=== PATIENT | male | born 1995 | race American Indian/Alaskan Native ===

== ENCOUNTER 2017-11-03 12:05 | Emergency (ER) | payer OTHER ==
[2017-11-03 12:27] VITALS: BP 94/69
[2017-11-03] MEDS ORDERED: TORADOL IM ONE (14:49)
--- NOTE | 2017-11-03 14:52 | Emergency Department Report ---
Chief Complaint: Extremity Injury, Upper Stated Complaint: WRIST/THUMB/ANKLE PAIN Time Seen by Provider: 11/03/17 14:45 - HPI History of Present Illness: 22-year-old male presents to the emergency department with a four-day history of right thumb pain, right wrist pain and right foot pain. 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 His thumb got bent back and since that time he's been having the thumb and wrist pain. Also a large heavy rack rolled over his right foot. He has not taken anything for symptoms. Presentation. He does not have a past medical history. - ROS Review of Systems: Positive for arthralgia. Negative for edema, skin color change, or any obvious deformity - Exam Vital Signs: Vital Signs 11/03/17 12:26 Temperature 98.8 F Pulse Rate 79 Respiratory 18 Rate Blood Pressure 94/69 O2 Sat by Pulse 98 Oximetry Physical Exam: He has some tenderness to palpation to the proximal base of the right thumb, the circumferential right breast, and the right midfoot. Radial pulse +2 over 4 bilaterally. Dorsalis pedis pulse posterior before to the affected right foot. MSE screening note: Focused history and physical exam performed. Due to findings the following was ordered: I have ordered an x-ray of the right hand, right wrist, and right foot. He has been given a IM dose of Toradol for his discomfort. ED Disposition for MSE Condition: Stable Referrals: PRIMARY CARE, [Primary Care Provider] - 3-5 Days
--- NOTE | 2017-11-03 15:28 | XRay Report ---
XRAY RIGHT FOOT THREE VIEWS: 11/03/17 12:05:00 CLINICAL: Right foot pain. FINDINGS: Normal bones, joints and soft tissues. No fracture or dislocation. IMPRESSION: Normal.
--- NOTE | 2017-11-03 15:29 | XRay Report ---
XRAY RIGHT HAND THREE VIEWS: 11/03/17 12:05:00 CLINICAL: Thumb pain. FINDINGS: Slight motion on the exam. Normal bones, joints and soft tissues. No fracture or dislocation. IMPRESSION: Normal.
--- NOTE | 2017-11-03 15:30 | XRay Report ---
RIGHT WRIST FOUR VIEWS: 11/03/17 14:48:00 CLINICAL: Pain. FINDINGS: Slight motion on the examination. Normal bones, joints and soft tissues. No fracture or dislocation. IMPRESSION: Normal
--- NOTE | 2017-11-03 16:49 | Emergency Department Report ---
HPI - General Chief Complaint: Extremity Injury, Upper Time Seen by Provider: 11/03/17 14:45 - HPI HPI: 22-year-old male presents to the emergency department with a four-day history of right thumb pain, right wrist pain and right foot pain. 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 His thumb got bent back while moving some of the tires and since that time he's been having the thumb and wrist pain. Also a large heavy rack rolled over his right foot. He has not taken anything for symptoms prior to presentation. He is able to bear some weight but has pain with doing so. He does not have a past medical history. ED Past Medical Hx - Past Medical History Previous Medical History?: No - Surgical History Past Surgical History?: No - Medications Home Medications: Home Medications Medication Instructions Recorded Confirmed Last Taken Type HYDROcodone/ACETAMINOPHEN [[place] 1 each PO Q8H PRN #10 tablet 11/03/17 Unknown Rx 5-325 Tablet] Ibuprofen 800 mg PO Q8H PRN #20 tablet 11/03/17 Unknown Rx ED Review of Systems ROS: Stated complaint: WRIST/THUMB/ANKLE PAIN Other details as noted in HPI Comment: All other systems reviewed and negative Constitutional: denies: chills, fever Eyes: denies: eye pain, eye discharge, vision change ENT: denies: ear pain, throat pain Respiratory: denies: cough, shortness of breath, wheezing Cardiovascular: denies: chest pain, palpitations Gastrointestinal: denies: abdominal pain, nausea, diarrhea Genitourinary: denies: urgency, dysuria Musculoskeletal: arthralgia. denies: back pain Skin: denies: rash, lesions Neurological: denies: headache, weakness, paresthesias Physical Exam - Physical Exam Vital Signs: Vital Signs 11/03/17 12:26 Temperature 98.8 F Pulse Rate 79 Respiratory 18 Rate Blood Pressure 94/69 O2 Sat by Pulse 98 Oximetry Physical Exam: GENERAL: The patient is well-developed well-nourished. HENT: Normocephalic. Atraumatic. Patient has moist mucous membranes. EYES: Extraocular motions are intact. Pupils equal reactive to light bilaterally. NECK: Supple. Trachea is midline. CHEST/LUNGS: Clear to auscultation. There is no respiratory distress noted. HEART/CARDIOVASCULAR: Regular. There is no tachycardia. There is no murmur. ABDOMEN: Abdomen is soft, nontender. Patient has normal bowel sounds. There is no abdominal distention. SKIN: Skin is warm and dry. NEURO: The patient is awake, alert, and oriented. The patient is cooperative. The patient has no focal neurologic deficits. The patient has normal speech and gait. MUSCULOSKELETAL: Tenderness to palpation to the proximal right thumb and circumferential right wrist. Cap refill less than 2 seconds. Radial pulse +2 over 4 to the affected right upper extremity. Tenderness palpation to the right midfoot but no obvious deformity. +2 over 4 dorsalis pedis pulse to the affected right foot. Decreased range of motion of the right thumb, right wrist and foot secondary to pain. ED Course Vital Signs 11/03/17 12:26 Temperature 98.8 F Pulse Rate 79 Respiratory 18 Rate Blood Pressure 94/69 O2 Sat by Pulse 98 Oximetry ED Medical Decision Making - Radiology Data Radiology results: image reviewed interpreted by me: X-ray of the right hand, right wrist and right foot do not show any fractures, dislocations or any acute process. - Medical Decision Making Patient presents with pain to the right thumb and wrist as well as the right mid foot. X-rays were done of these regions that do not show any fracture, dislocation or any acute process. The patient understands that there still could be some underlying ligament or tendinous injury. He was placed in a right thumb spica, a right foot Maximo wrap and placed on crutches. He was given a referral for an orthopedist and given pain medication. He will return to the ER with any worsening of symptoms or any acute distress. - Differential Diagnosis fracture, dislocation, contusion, sprain, strain Critical Care Time: No Critical care attestation.: If time is entered above; I have spent that time in minutes in the direct care of this critically ill patient, excluding procedure time. ED Disposition Clinical Impression: Right wrist pain, Right foot pain Sprain of right thumb Qualifiers: Encounter type: initial encounter Sprain of finger site: unspecified site Qualified Code(s): S63.601A - Unspecified sprain of right thumb, initial encounter Disposition: - TO HOME OR SELFCARE Is pt being admited?: No Condition: Stable Instructions: Finger Sprain (ED), Arthralgia (ED) Additional Instructions: Please follow up with an orthopedist. Return to the emergency Department with any worsening of your symptoms or any acute distress. You have been prescribed a medication that is sedating and therefore should not be taken prior to driving , working, and responsible for children and in no way should be mixed with alcohol of any quantity. Prescriptions: HYDROcodone/ACETAMINOPHEN [[place] 5-325 Tablet] 1 each PO Q8H PRN #10 tablet PRN Reason: Pain Ibuprofen 800 mg PO Q8H PRN #20 tablet PRN Reason: Pain Referrals: COOKIE LUNA MD [Staff Physician] - 3-5 Days [facility] [Provider Group] - 3-5 Days Forms: Work/School Release Form(ED) Time of Disposition: 16:52
== END 2017-11-03 17:10 | disposition home or self-care (01) ==
LOC: ED 12:05
DX: S63.601A Unspecified sprain of right thumb, initial encounter (principal); X50.0XXA Overexertion from strenuous movement or load, initial encounter; Y93.89 Activity, other specified; Y92.89 Other specified places as the place of occurrence of the external cause; Y99.8 Other external cause status
CPT/HCPCS: 29125; 73110; 73130; 73630; 96372; 99284; J1885

== ENCOUNTER 2018-02-11 16:13 | Emergency (ER) | payer OTHER ==
[2018-02-11 16:37] VITALS: BP 122/72
== END 2018-02-11 20:50 | disposition left against medical advice (07) ==
LOC: ED 16:13
DX: R07.89 Other chest pain (principal); F17.200 Nicotine dependence, unspecified, uncomplicated; Z53.21 Procedure and treatment not carried out due to patient leaving prior to being seen by health care provider
CPT/HCPCS: 93005; 93010

== ENCOUNTER 2018-04-23 18:29 | Emergency (ER) | payer SELFPAY ==
[2018-04-23] MEDS ORDERED: MOTRIN PO ONE (19:01)
--- NOTE | 2018-04-23 21:33 | Emergency Department Report ---
- General Chief Complaint: Upper Respiratory Infection Stated Complaint: FLU LIKE SYMPTOMS Time Seen by Provider: 04/23/18 21:18 Source: patient Mode of arrival: Ambulatory Limitations: No Limitations - History of Present Illness Initial Comments: 23-year-old after an [place] male with no past medical history presents to the emergency room for cough with blood-tinged mucus, body aches, headache upset stomach chest pain with cough and runny nose and nasal congestion. Patient reports this is been going on for the last 3 days. Patient does admit to taking Tylenol which she reports has not helped. 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 Patient has no known drug allergies currently takes no medications on a daily basis. MD Complaint: fever, cough, sore throat, rhinorrhea, nasal congestion -: days(s) (3) Severity: moderate Quality: aching Consistency: intermittent Improves With: nothing Worsens With: other (cough) Associated Symptoms: fever, myalgias, headache, rhinorrhea, nasal congestion, sore throat, cough, chest pain. denies: nausea, vomiting, diarrhea Treatments Prior to Arrival: Acetaminophen - Related Data Previous Rx's Medication Instructions Recorded Last Taken Type HYDROcodone/ACETAMINOPHEN [[place] 1 each PO Q8H PRN #10 tablet 11/03/17 Unknown Rx 5-325 Tablet] Ibuprofen 800 mg PO Q8H PRN #20 tablet 11/03/17 Unknown Rx Fluticasone [Flonase] 1 spray NS QDAY #1 bottle 04/23/18 Unknown Rx Loratadine [Claritin] 10 mg PO DAILY #15 tablet 04/23/18 Unknown Rx guaiFENesin [Robitussin] 200 mg PO Q4HR #118 ml 04/23/18 Unknown Rx Allergies Allergy/AdvReac Type Severity Reaction Status Date / Time No Known Allergies Allergy Unverified 11/03/17 12:25 ED Review of Systems ROS: Stated complaint: FLU LIKE SYMPTOMS Other details as noted in HPI Comment: All other systems reviewed and negative ED Past Medical Hx - Past Medical History Previous Medical History?: No - Surgical History Past Surgical History?: No - Social History Smoking Status: Never Smoker Substance Use Type: None - Medications Home Medications: Home Medications Medication Instructions Recorded Confirmed Last Taken Type HYDROcodone/ACETAMINOPHEN [[place] 1 each PO Q8H PRN #10 tablet 11/03/17 Unknown Rx 5-325 Tablet] Ibuprofen 800 mg PO Q8H PRN #20 tablet 11/03/17 Unknown Rx Fluticasone [Flonase] 1 spray NS QDAY #1 bottle 04/23/18 Unknown Rx Loratadine [Claritin] 10 mg PO DAILY #15 tablet 04/23/18 Unknown Rx guaiFENesin [Robitussin] 200 mg PO Q4HR #118 ml 04/23/18 Unknown Rx ED Physical Exam - General Limitations: No Limitations General appearance: alert, in no apparent distress - Head Head exam: Present: atraumatic, normocephalic - Eye Eye exam: Present: EOMI - ENT ENT exam: Present: TM's normal bilaterally - Expanded ENT Exam Expanded Throat exam: Positive: tonsillar erythema, tonsillomegaly. Negative: tonsillar exudate - Neck Neck exam: Present: normal inspection - Respiratory Respiratory exam: Present: normal lung sounds bilaterally. Absent: respiratory distress - Cardiovascular Cardiovascular Exam: Present: regular rate, normal rhythm. Absent: systolic murmur, diastolic murmur, rubs, gallop - GI/Abdominal GI/Abdominal exam: Present: soft, normal bowel sounds - Extremities Exam Extremities exam: Present: normal inspection, full ROM - Back Exam Back exam: Present: full ROM - Neurological Exam Neurological exam: Present: alert, oriented X3 - Psychiatric Psychiatric exam: Present: normal affect, normal mood - Skin Skin exam: Present: warm, dry, intact, normal color. Absent: rash ED Course Vital Signs 04/23/18 04/23/18 04/23/18 18:52 19:15 21:54 Temperature 102.1 F H 99.1 F Pulse Rate 79 86 Respiratory 20 18 20 Rate Blood Pressure 142/58 Blood Pressure 106/72 [Right] O2 Sat by Pulse 100 95 Oximetry ED Medical Decision Making - Medical Decision Making Patient has been evaluated by this provider in fast track. Ibuprofen 800 mg given in triage for pain management and fever control. Rapid strep rapid flu and chest x-ray has been ordered. Critical care attestation.: If time is entered above; I have spent that time in minutes in the direct care of this critically ill patient, excluding procedure time. ED Disposition Clinical Impression: Viral syndrome Disposition: DC-01 TO HOME OR SELFCARE Is pt being admited?: No Does the pt Need Aspirin: No Condition: Stable Instructions: Viral Syndrome (ED) Additional Instructions: Please take pain medication as needed. Follow-up with your primary care provider or [facility]. Prescriptions: Fluticasone [Flonase] 1 spray NS QDAY #1 bottle guaiFENesin [Robitussin] 200 mg PO Q4HR #118 ml Loratadine [Claritin] 10 mg PO DAILY #15 tablet Referrals: PRIMARY CARE, [Primary Care Provider] - 3-5 Days [facility] [Provider Group] - 3-5 Days Forms: Work/School Release Form(ED)
[2018-04-23 21:55] VITALS: BP 106/72
--- NOTE | 2018-04-23 22:18 | XRay Report ---
FINAL REPORT PROCEDURE: XR CHEST ROUTINE 2V TECHNIQUE: PA and lateral chest radiographs were obtained. CPT 97696 HISTORY: cough with fever blood-tinged mucus COMPARISON: No prior studies are available for comparison. FINDINGS: Heart: Normal. Mediastinum/Vessels: Normal. Lungs/Pleural space: Normal. Bony thorax: No acute osseous abnormality. Other: IMPRESSION: Normal examination.
== END 2018-04-23 22:50 | disposition home or self-care (01) ==
LOC: ED 18:29
DX: B34.9 Viral infection, unspecified (principal)
CPT/HCPCS: 71046; 87116; 87400; 87430

== ENCOUNTER 2018-10-27 03:08 | Emergency (ER) | payer OTHER ==
[2018-10-27 03:21] VITALS: BP 135/76
--- NOTE | 2018-10-27 04:13 | XRay Report ---
PROCEDURE: XR CLAVICLE LT TECHNIQUE: 2 views of the left clavicle were obtained. HISTORY: pain a and deformity COMPARISONS: None FINDINGS: There is no evidence of acute fracture. The AC joint and glenohumeral joint appear intact. The soft t issues otherwise are unremarkable. IMPRESSION: Within normal limits.. This document is electronically signed by Jalil Terrell MD., October 27 2018 04:11:15 AM ET
[2018-10-27] MEDS ORDERED: IBUPROFEN PO ONE (04:46)
--- NOTE | 2018-10-27 04:49 | Emergency Department Report ---
ED Male HPI - General Chief complaint: Extremity Injury, Upper Stated complaint: COLLAR BONE OUT OF PLACE,RT HAND IN PAIN Time Seen by Provider: 10/27/18 04:45 Source: patient Mode of arrival: Ambulatory Limitations: No Limitations - History of Present Illness Initial comments: Patient is a 14-year-old male who - Related Data Previous Rx's Medication Instructions Recorded Last Taken Type HYDROcodone/ACETAMINOPHEN [[place] 1 each PO Q8H PRN #10 tablet 11/03/17 Unknown Rx 5-325 Tablet] Ibuprofen 800 mg PO Q8H PRN #20 tablet 11/03/17 Unknown Rx Fluticasone [Flonase] 1 spray NS QDAY #1 bottle 04/23/18 Unknown Rx Loratadine [Claritin] 10 mg PO DAILY #15 tablet 04/23/18 Unknown Rx guaiFENesin [Robitussin] 200 mg PO Q4HR #118 ml 04/23/18 Unknown Rx Allergies Allergy/AdvReac Type Severity Reaction Status Date / Time No Known Allergies Allergy Unverified 11/03/17 12:25 ED Review of Systems ROS: Stated complaint: COLLAR BONE OUT OF PLACE,RT HAND IN PAIN Other details as noted in HPI ED Past Medical Hx - Past Medical History Previous Medical History?: Yes Additional medical history: sleep apnea - Surgical History Past Surgical History?: No - Social History Smoking Status: Current Every Day Smoker Substance Use Type: Alcohol - Medications Home Medications: Home Medications Medication Instructions Recorded Confirmed Last Taken Type HYDROcodone/ACETAMINOPHEN [[place] 1 each PO Q8H PRN #10 tablet 11/03/17 Unknown Rx 5-325 Tablet] Ibuprofen 800 mg PO Q8H PRN #20 tablet 11/03/17 Unknown Rx Fluticasone [Flonase] 1 spray NS QDAY #1 bottle 04/23/18 Unknown Rx Loratadine [Claritin] 10 mg PO DAILY #15 tablet 04/23/18 Unknown Rx guaiFENesin [Robitussin] 200 mg PO Q4HR #118 ml 04/23/18 Unknown Rx ED Physical Exam - General Limitations: No Limitations ED Course Vital Signs 10/27/18 03:17 Temperature 98.1 F Pulse Rate 98 H Respiratory 16 Rate Blood Pressure 135/76 O2 Sat by Pulse 99 Oximetry Critical care attestation.: If time is entered above; I have spent that time in minutes in the direct care of this critically ill patient, excluding procedure time. ED Disposition Condition: Stable Referrals: SATYA ROSA MD [Primary Care Provider] - 3-5 Days
--- NOTE | 2018-10-27 07:16 | Emergency Department Report ---
ED General Adult HPI - General Chief complaint: Extremity Injury, Upper Stated complaint: COLLAR BONE OUT OF PLACE,RT HAND IN PAIN Time Seen by Provider: 10/27/18 04:45 Source: patient Mode of arrival: Ambulatory Limitations: No Limitations - History of Present Illness Initial comments: pt is a 23 y/o aam who presents for left shouler pain x 2 weeks after lifting heavy box over head, now with pain swelling spasm , there is no sob no wheezing no cough no hemoptysis no deformity Onset/Timin -: week(s) Location: upper extremity Severity scale (0 -10): 4 Quality: sharp Consistency: intermittent Improves with: none Worsens with: movement Treatments Prior to Arrival: none - Related Data Previous Rx's Medication Instructions Recorded Last Taken Type HYDROcodone/ACETAMINOPHEN [[place] 1 each PO Q8H PRN #10 tablet 11/03/17 Unknown Rx 5-325 Tablet] Ibuprofen 800 mg PO Q8H PRN #20 tablet 11/03/17 Unknown Rx Fluticasone [Flonase] 1 spray NS QDAY #1 bottle 04/23/18 Unknown Rx Loratadine [Claritin] 10 mg PO DAILY #15 tablet 04/23/18 Unknown Rx guaiFENesin [Robitussin] 200 mg PO Q4HR #118 ml 04/23/18 Unknown Rx Cyclobenzaprine [Flexeril] 10 mg PO TID PRN #30 tablet 10/27/18 Unknown Rx Menthol/Camphor [[place] 1 applicatio TP QID #1 tube 10/27/18 Unknown Rx Ointment] Naproxen [Naprosyn] 500 mg PO BID PRN #30 tablet 10/27/18 Unknown Rx Allergies Allergy/AdvReac Type Severity Reaction Status Date / Time No Known Allergies Allergy Unverified 11/03/17 12:25 ED Review of Systems ROS: Stated complaint: COLLAR BONE OUT OF PLACE,RT HAND IN PAIN Other details as noted in HPI Constitutional: denies: chills, fever Eyes: denies: eye pain, eye discharge, vision change ENT: denies: ear pain, throat pain Respiratory: denies: cough, shortness of breath, wheezing Cardiovascular: denies: chest pain, palpitations Endocrine: no symptoms reported Gastrointestinal: denies: abdominal pain, nausea, diarrhea Genitourinary: denies: urgency, dysuria Musculoskeletal: other (left shoulder pain ). denies: back pain, joint swelling, arthralgia Skin: denies: rash, lesions Neurological: denies: headache, weakness, paresthesias Psychiatric: denies: anxiety, depression Hematological/Lymphatic: as per HPI ED Past Medical Hx - Past Medical History Previous Medical History?: Yes Additional medical history: sleep apnea - Surgical History Past Surgical History?: No - Social History Smoking Status: Current Every Day Smoker Substance Use Type: Alcohol - Medications Home Medications: Home Medications Medication Instructions Recorded Confirmed Last Taken Type HYDROcodone/ACETAMINOPHEN [[place] 1 each PO Q8H PRN #10 tablet 11/03/17 Unknown Rx 5-325 Tablet] Ibuprofen 800 mg PO Q8H PRN #20 tablet 11/03/17 Unknown Rx Fluticasone [Flonase] 1 spray NS QDAY #1 bottle 04/23/18 Unknown Rx Loratadine [Claritin] 10 mg PO DAILY #15 tablet 04/23/18 Unknown Rx guaiFENesin [Robitussin] 200 mg PO Q4HR #118 ml 04/23/18 Unknown Rx Cyclobenzaprine [Flexeril] 10 mg PO TID PRN #30 tablet 10/27/18 Unknown Rx Menthol/Camphor [[place] 1 applicatio TP QID #1 tube 10/27/18 Unknown Rx Ointment] Naproxen [Naprosyn] 500 mg PO BID PRN #30 tablet 10/27/18 Unknown Rx ED Physical Exam - General Limitations: No Limitations General appearance: alert, in no apparent distress - Head Head exam: Present: atraumatic, normocephalic - Eye Eye exam: Present: normal appearance, PERRL, EOMI Pupils: Present: normal accommodation - ENT ENT exam: Present: mucous membranes moist - Neck Neck exam: Present: normal inspection, full ROM, lymphadenopathy - Respiratory Respiratory exam: Present: normal lung sounds bilaterally. Absent: respiratory distress, wheezes, stridor, chest wall tenderness, decreased breath sounds, prolonged expiratory - Cardiovascular Cardiovascular Exam: Present: regular rate, normal rhythm, normal heart sounds. Absent: systolic murmur, diastolic murmur, rubs, gallop - GI/Abdominal GI/Abdominal exam: Present: soft, normal bowel sounds. Absent: tenderness, rebound, bruit, hernia - Rectal Rectal exam: Present: deferred - Extremities Exam Extremities exam: Present: normal inspection, full ROM, normal capillary refill - Expanded Upper Extremity Exam Left Shoulder Exam: Present: tenderness (left lateral shoulder and clavicle ), abrasion, ecchymosis. Absent: swelling, laceration, deformity, crepidus, dislocation, erythema, tenderness over AC joint Upper Arm exam: Present: normal inspection, full ROM. Absent: tenderness Elbow exam: Present: normal inspection, full ROM. Absent: tenderness Forearm Wrist exam: Present: normal inspection, full ROM. Absent: tenderness, swelling Hand Wrist exam: Present: normal inspection, full ROM. Absent: tenderness, swelling Neuro motor exam: Present: wrist extension intact, thumb opposition intact, thumb IP flexion intact, thumb adduction intact, fingers 2-5 abduction intact Neurosensory exam: Present: 2-point discrimination, radial nerve intact, ulnar nerve intact, median nerve intact Vascular: Present: normal capillary refill, radial pulse, brachial pulse, ulnar pulse. Absent: pulse deficit radial art, pulse deficit ulnar art, pulse deficit brachial art - Back Exam Back exam: Present: normal inspection, full ROM. Absent: tenderness, CVA tenderness (R), CVA tenderness (L), muscle spasm, rash noted - Neurological Exam Neurological exam: Present: alert, oriented X3, CN II-XII intact, normal gait, reflexes normal. Absent: motor sensory deficit - Psychiatric Psychiatric exam: Present: normal affect, normal mood - Skin Skin exam: Present: warm, dry, intact, normal color. Absent: rash ED Course Vital Signs 10/27/18 10/27/18 03:17 04:54 Temperature 98.1 F Pulse Rate 98 H Respiratory 16 18 Rate Blood Pressure 135/76 O2 Sat by Pulse 99 Oximetry ED Medical Decision Making - Radiology Data Radiology results: report reviewed, image reviewed Findings [facility] [address] [place] [address] XRay Report Signed Patient: ZEHRA MELENDEZ II MR#: [id number] : 1995 Acct:[id number] Age/Sex: 23 / M ADM Date: 10/27/18 Loc: ED Attending Dr: Ordering Physician: CHRISTIAN KONG MD Date of Service: 10/27/18 Procedure(s): XR clavicle LT Accession Number(s): [id number] cc: ED MD DILAN Fluoro Time In Minutes: PROCEDURE: XR CLAVICLE LT TECHNIQUE: 2 views of the left clavicle were obtained. HISTORY: pain a and deformity COMPARISONS: None FINDINGS: There is no evidence of acute fracture. The AC joint and glenohumeral joint appear intact. The soft tissues otherwise are unremarkable. IMPRESSION: Within normal limits.. This document is electronically signed by Cookie Terrell MD., October 27 2018 04:11:15 AM ET Transcribed By: RB Dictated By: COOKIE TERRELL MD Electronically Authenticated By: COOKIE TERRELL MD Signed Date/Time: 10/27/18412 DD/ 6 TD/TT: 10/27/18406 - Medical Decision Making shoulder xray neg for fracture, no soft tissue abnormality , exam no deformity strength 5/5 rom intact unrestricted, electrician telephone equal , lungs are clear throughout , plan: nsaids muscle relaxant, analgesic balm follow up with pcp in 2-3 days return to ed if symptoms worsen, Critical care attestation.: If time is entered above; I have spent that time in minutes in the direct care of this critically ill patient, excluding procedure time. ED Disposition Clinical Impression: Left shoulder strain Qualifiers: Encounter type: initial encounter Qualified Code(s): S46.912A - Strain of unspecified muscle, fascia and tendon at shoulder and upper arm level, left arm, initial encounter Disposition: TO HOME OR SELFCARE Is pt being admited?: No Does the pt Need Aspirin: No Condition: Stable Instructions: Shoulder Sprain (ED) Prescriptions: Cyclobenzaprine [Flexeril] 10 mg PO TID PRN #30 tablet PRN Reason: Muscle Spasm Naproxen [Naprosyn] 500 mg PO BID PRN #30 tablet PRN Reason: pain Menthol/Camphor [[place] Ointment] 1 applicatio TP QID #1 tube Referrals: SATYA ROSA MD [Primary Care Provider] - 3-5 Days Forms: Work/School Release Form(ED) Time of Disposition: 07:28
== END 2018-10-27 05:47 | disposition home or self-care (01) ==
LOC: ED 03:08
DX: S46.912A Strain of unspecified muscle, fascia and tendon at shoulder and upper arm level, left arm, initial encounter (principal); F17.200 Nicotine dependence, unspecified, uncomplicated; X58.XXXA Exposure to other specified factors, initial encounter; Y93.89 Activity, other specified; Y92.89 Other specified places as the place of occurrence of the external cause; Y99.8 Other external cause status
CPT/HCPCS: 99283

== ENCOUNTER 2021-10-05 05:32 | Emergency (ER) | payer SELFPAY ==
[2021-10-05] MEDS ORDERED: ACETAMINOPHEN 500 MG TAB PO ONE (07:49)
--- NOTE | 2021-10-05 08:30 | XRay Report ---
XR chest routine 2V INDICATION / CLINICAL INFORMATION: sob. COMPARISON: 04/23/2018 FINDINGS: SUPPORT DEVICES: None. HEART /PULMONARY VASCULATURE: No significant abnormality. LUNGS / PLEURA: No significant pulmonary or pleural abnormality. No pneumothorax. ADDITIONAL FINDINGS: No significant additional findings. IMPRESSION: 1. No acute findings. Signer Name: Braydon Landin MD Signed: 10/05/2021 8:26 AM Workstation Name: [id number]
--- NOTE | 2021-10-05 09:03 | Emergency Department Report ---
Minor Respiratory - HPI Chief Complaint: Headache Stated Complaint: FLU SX Time Seen by Provider: 10/05/21 07:39 Duration: 3 Days Pain Location: Chest Severity: moderate Minor Respiratory: Yes Sore Throat, Yes Able to Tolerate Fluids, Yes Cough, Yes Fever, No Rhinorrhea, No Ear Pain, No Sick Contacts, No Hemoptysis, No Chest Pain, No Shortness of Breath Other History: 26 yo male comes to ER with cough and fever. ED Review of Systems ROS: Stated complaint: FLU SX Other details as noted in HPI Comment: All other systems reviewed and negative ED Past Medical Hx - Past Medical History Previous Medical History?: Yes Additional medical history: sleep apnea - Surgical History Past Surgical History?: No - Family History Family history: no significant - Social History Smoking Status: Current Every Day Smoker Substance Use Type: None - Medications Home Medications: Home Medications Medication Instructions Recorded Confirmed Last Taken Type HYDROcodone/ACETAMINOPHEN [[place] 1 each PO Q8H PRN #10 tablet 11/03/17 Unknown Rx 5-325 Tablet] Ibuprofen [Ibuprofen 800] 800 mg PO Q8H PRN #20 tablet 11/03/17 Unknown Rx Fluticasone [Flonase] 1 spray NS QDAY #1 bottle 04/23/18 Unknown Rx Loratadine (Nf) [Claritin] 10 mg PO DAILY #15 tablet 04/23/18 Unknown Rx guaiFENesin [Robitussin] 200 mg PO Q4HR #118 ml 04/23/18 Unknown Rx Cyclobenzaprine [Flexeril] 10 mg PO TID PRN #30 tablet 10/27/18 Unknown Rx Menthol/Camphor [[place] 1 applicatio TP QID #1 tube 10/27/18 Unknown Rx Ointment] Naproxen [Naprosyn] 500 mg PO BID PRN #30 tablet 10/27/18 Unknown Rx Azithromycin [Zithromax Z-TAWANNA] 250 mg PO DAILY #6 tablet 10/05/21 Unknown Rx Cetirizine HCl [ZyrTEC] 10 mg PO DAILY #30 capsule 10/05/21 Unknown Rx Fluticasone [Flonase] 1 spray NS QDAY #1 bottle 10/05/21 Unknown Rx methylPREDNISolone [Medrol 4MG 4 mg PO FS #1 tab.ds.pk 10/05/21 Unknown Rx DOSEPAK (21 tabs)] predniSONE [Deltasone] 20 mg PO DAILY #5 tablet 10/05/21 Unknown Rx Minor Respiratory Exam - Exam General: Vital signs noted. No distress. Alert and acting appropriately. HEENT: Yes Pharyngeal Erythema, Yes Moist Mucous Membranes, Yes Rhinorrhea, Yes Frontal Tenderness, Yes Maxillary Tenderness, No Pharyngeal Exudates, No Conjuctival Injection Ear: Neither TM Bulge, Neither TM Erythema, Neither EAC Pain, Neither EAC Discharge Neck: Yes Supple, No Adenopathy Lungs: Yes Good Air Exchange, No Wheezes, No [place], No Stridor, No Cough, No Labored Respirations, No Retractions, No Use of Accessory Muscles, No Other Abnormal Lung Sounds Heart: Yes Regular, No Murmur Abdomen: Yes Normal Bowel Sounds, No Tenderness, No Peritoneal Signs Skin: No Rash, No Edema Neurologic: Alert and oriented, no deficits. Musculoskeletal: Unremarkable. ED Course Vital Signs 10/05/21 06:00 Temperature 100.1 F H Pulse Rate 118 H Respiratory 22 Rate Blood Pressure 121/70 O2 Sat by Pulse 96 Oximetry ED Medical Decision Making - Radiology Data Radiology results: report reviewed, image reviewed - Medical Decision Making Vital Signs 10/05/21 10/05/21 06:00 09:43 Temperature 100.1 F H 98.8 F Pulse Rate 118 H 101 H Respiratory 22 18 Rate Blood Pressure 121/70 135/71 O2 Sat by Pulse 96 95 Oximetry medicated for fever xr noted pt left without test results/dc papers - Differential Diagnosis uri ro covid Critical care attestation.: If time is entered above; I have spent that time in minutes in the direct care of this critically ill patient, excluding procedure time. ED Disposition Clinical Impression: URI (upper respiratory infection) Disposition: 07 LEFT AWOL/ELOPED Is pt being admited?: No Does the pt Need Aspirin: No Condition: Stable Instructions: Upper Respiratory Infection, Adult Additional Instructions: Meds as ordered today Take [id number] Motrin and Tylenol for your fever stay well-hydrated with water Follow-up with your PCP next week to make sure you are getting better referral has been given to thin below Prescriptions: predniSONE [Deltasone] 20 mg PO DAILY #5 tablet Fluticasone [Flonase] 1 spray NS QDAY #1 bottle methylPREDNISolone [Medrol 4MG DOSEPAK (21 tabs)] 4 mg PO FS #1 tab.ds.pk Azithromycin [Zithromax Z-TAWANNA] 250 mg PO DAILY #6 tablet Cetirizine HCl [ZyrTEC] 10 mg PO DAILY #30 capsule Referrals: PRIMARY CAREMD [Primary Care Provider] - 3-5 Days CHERI DUNN MD [Staff Physician] - 3-5 Days Forms: Work/School Release Form(ED), Work/School Excuse Out Patient, Work/School Release Form Time of Disposition: 09:03
[2021-10-05] MEDS ORDERED: dexAMETHasone 4 MG/ML VIAL IM ONE (09:17)
[2021-10-05 09:45] VITALS: BP 135/71
== END 2021-10-05 10:12 | disposition left against medical advice (07) ==
LOC: ED 05:32
DX: J06.9 Acute upper respiratory infection, unspecified (principal)
CPT/HCPCS: 71046; 96372; 99283; J1100